=== PATIENT | female | born 1985 | race African-American/Black ===

== ENCOUNTER 2016-10-15 21:47 | Emergency (ER) | payer OTHER ==
[2016-10-15] MEDS ORDERED: Dexamethasone 4 mg/ml Vial ONE (22:05)
[2016-10-15] MEDS ORDERED: Sulfameth/Trimethoprim DS 800-160mg TAB ONE (22:05)
--- NOTE | 2016-10-15 22:55 | PICIS ---
[facility] EMERGENCY RECORD TRIAGE (21:53 RAWI) PATIENT: NAME: Coby Pack, AGE: 31, GENDER: female, : Sat1985, TIME OF GREET: SatOct 15, 2016 21:48, PREFERRED LANGUAGE: Wolof, ETHNICITY: Not or , ECODE BILLING MAP: [facility], SSN: [id number], Zip Code: [address], PHONE: , , , PERSON ID: [id number], PAYMENT: Unknown, PCP: "DOES NOT REMEMBER". (21:53 RAWI) KG WEIGHT: 117.9 (est.). (21:55 RAWI) COMPLAINT: NECK SWELLING. (21:55 RAWI) ADMISSION: URGENCY: 3 Urgent, ADMISSION SOURCE: Home, TRANSPORT: Walk-in, BED: TRIAGE. (21:53 RAWI) IMMUNIZATIONS: Flu vaccine not up to date, Tetanus immunization up to date, Pneumococcal vaccine not up to date. (22:01 RAWI) SIRS SCORING: Heart Rate 55-109 (0), Temp range 96.8-101.1 (0), respiratory rate 12-24 (0), Latest WBC 3-14.9 (0), Mental Status altered: no (0). (22:01 RAWI) TRIAGE SCREENING: Patient denies suicidal ideation, Patient denies presence of domestic violence. (22:01 RAWI) TREATMENTS IN PROGRESS: Treatments given Prehospital: NONE. (22:01 RAWI) PROVIDERS: TRIAGE NURSE: PAOLO Glover. (21:53 RAWI) PREVIOUS VISIT ALLERGIES: raspberry. (21:53 RAWI) raspberry. (22:01 RAWI) KNOWN ALLERGIES raspberry (Unconfirmed) CURRENT MEDICATIONS (22:02 RAWI) Zantac: TABLET : Strength - 150 mg : ORAL Patient Dose: 1 tab(s) Oral As Needed. VITAL SIGNS VITAL SIGNS: BP: 114/92, Pulse: 90, Resp: 20, Temp: 98.6 (Oral), Pain: 0, O2 sat: 100 on Room Air, Time: 10/15/2016 21:53. (21:53 RAWI) BP: 111/84, Pulse: 75, Resp: 16, Pain: 0, O2 sat: 100 on RA, Time: 10/15/2016 22:21. (22:21 RAWI) NURSING ASSESSMENT: ENT (21:55 RAWI) CONSTITUTIONAL: Patient arrives ambulatory, Gait steady, History obtained from patient, Patient appears comfortable, Patient cooperative, Patient alert, Oriented to person, place and time, Skin warm, Skin dry, Skin normal in color, Mucous membranes pink, Mucous membranes moist, Patient is well-groomed. ENT: Ear assessment findings include ear normal to inspection, Nasal assessment findings include nose normal to inspection, Sinuses normal, Nasal mucosa normal, Mouth and throat assessment findings include mouth, NECK SWOLLEN ON L SIDE, Able &a-1R&a+25V*p+0X*[id number]*c202B*c15G*c2P*p-0X&a-25V&a+1R Name: Coby Pack : 1985 F31 MedRec: [id number] AcctNum: [id number] Prepared: SatOct 15, 2016 22:32 by Interface Page 1 of 5 pMD [facility] EMERGENCY RECORD to swallow, Speech normal, Notes: PT NOTES "PUFFINIESS ON L SIDE. STARTED 3 DAYS AGO" PT NOTES SNEEZING AND DRYNESS IN NOSE. RESPIRATORY/CHEST: Breath sounds clear, Respiratory assessment findings include respiratory effort easy, Respirations regular, Conversing normally, Neck and chest exam findings include trachea midline, Chest expansion equal, Chest movement symmetrical, no signs of distress. SAFETY: Side rails up, Cart/Stretcher in lowest position, Call light within reach, Hospital ID band on. NURSING PROCEDURE: DISCHARGE NOTE (22:21 RAWI) DISCHARGE: Patient discharged to home, ambulating without assistance, driving self, unaccompanied, Summary of Care printed/ provided, Patient requested and was provided an electronic copy of Discharge Instructions, Discharge instructions given to patient, Simple or moderate discharge teaching performed, Prescriptions given and instructions on side effects given, Patient treated and evaluated by physician. BELONGINGS: Belongings remain with patient, Valuables remain with patient. VITAL SIGNS: BP: 111, / 84, Pulse: 75, Resp: 16, Pain: 0, O2 sat: 100, on: RA. MEDICATION ADMINISTRATION SUMMARY Drug Name: Rajesh POLLOCK, Dose Ordered: 2 tab(s), Route: Oral, Status: Given, Time: 22:09 10/15/2016, Drug Name: dexamethasone, Dose Ordered: 8 mg, Route: Oral, Status: Given, Time: 22:08 10/15/2016, Detailed record available in Medication Service section. MEDICATION SERVICE dexamethasone: Order: dexamethasone - Dose: 8 mg : Oral Schedule: Now Ordered by: Nadeem Grider DO Entered by: Nadeem Grider DO SatOct 15, 2016 21:59 , Acknowledged by: PAOLO Glover SatOct 15, 2016 22:02 Documented as given by: PAOLO Glover SatOct 15, 2016 22:08 Patient, Medication, Dose, Route and Time verified prior to administration. Amount given: 8 MG, Site: Medication administered P.O., Correct patient, time, route, dose and medication confirmed prior to administration, Patient advised of actions and side-effects prior to administration, Allergies confirmed and medications reviewed prior to administration, Patient in position of comfort, Side rails up, Cart in lowest position, Call light in reach, MIXED WITH 10 ML OROSWEET. Septra DS: Order: Septra DS (sulfamethoxazole/trimethoprim) - Dose: 2 tab(s) : Oral Schedule: Now &a-1R&a+25V*p+0X*j8354Y*c202B*c15G*c2P*p-0X&a-25V&a+1R Name: Coby Pack : 1985 F31 MedRec: [id number] AcctNum: [id number] Prepared: SatOct 15, 2016 22:32 by Interface Page 2 of 5 pMD [facility] EMERGENCY RECORD Ordered by: Nadeem Grider DO Entered by: Nadeem Grider DO SatOct 15, 2016 21:59 , Acknowledged by: PAOLO Glover SatOct 15, 2016 22:02 Documented as given by: PAOLO Glover SatOct 15, 2016 22:09 Patient, Medication, Dose, Route and Time verified prior to administration. Amount given: 2 TAB, Site: Medication administered P.O., Correct patient, time, route, dose and medication confirmed prior to administration, Patient advised of actions and side-effects prior to administration, Allergies confirmed and medications reviewed prior to administration, Patient in position of comfort, Side rails up, Cart in lowest position, Call light in reach. HPI URI (22:06 JPIP) CHIEF COMPLAINT: Patient presents for evaluation of nasal congestion, Patient presents for evaluation of feels like her neck is swelling and pushing on her throat. primarily on the left side. HISTORIAN: History provided by patient. LOCATION: Symptoms are localized, most severe to left side of her throat. SEVERITY: Current severity of pain rated as 0/10. TIME COURSE: Sudden onset of symptoms, 3, days ago, There has been no change in the patient's symptoms over time, are constant. ASSOCIATED WITH: No associated chills, No associated fever, No associated neck pain, No associated shortness of breath, nasal congestion and drainage. EXACERBATED BY: Patient's condition exacerbated by nothing. RELIEVED BY: Patient's condition relieved by nothing. ROS (22:08 JPIP) CONSTITUTIONAL: Historian denies chills, denies fever. EYES: Historian denies eye redness. ENT: Historian denies dysphagia, reports rhinorrhea, reports sinus pain, denies sore throat. RESPIRATORY: Historian denies cough, denies shortness of breath. GI: Historian denies nausea, denies vomiting. MUSCULOSKELETAL: Historian denies neck pain. SKIN: Historian denies rash, denies skin changes, denies skin lesions. NOTES: All systems reviewed, negative except as described above. PAST MEDICAL HISTORY MEDICAL HISTORY: No past medical history.VERIFIED 10/15/2016. (22:01 RAWI) FEMALE SURGICAL HISTORY: LOOP. VERIFIED 10/15/2016. (22:01 RAWI) PSYCHIATRIC HISTORY: No previous psychiatric history. VERIFIED 10/15/2016. (22:01 RAWI) SOCIAL HISTORY: Patient drinks socially, rarely, Patient denies drug use, Patient has no smoking history. &a-1R&a+25V*p+0X*q0704X*c202B*c15G*c2P*p-0X&a-25V&a+1R Name: Melissa Packndra : 1985 F31 MedRec: [id number] AcctNum: [id number] Prepared: SatOct 15, 2016 22:32 by Interface Page 3 of 5 pMD [facility] EMERGENCY RECORD VERIFIED 10/15/2016. (22:01 RAWI) NOTES: Nursing records reviewed, Medication list reviewed. (22:10 JPIP) PHYSICAL EXAM (22:09 JPIP) CONSTITUTIONAL: Vital signs reviewed, Patient afebrile, Pulse normal, Blood pressure, hypertensive, Respiratory rate normal, Patient appears, uncomfortable, Patient alert and oriented to person, place and time. HEAD: Head exam included findings of head atraumatic, normocephalic. EYES: Eye exam included findings of eyelids normal to inspection, Conjunctiva normal, Sclera normal, no periorbital ecchymosis, no periorbital edema, no periorbital erythema. ENT: Ear exam normal, external ear normal, tympanic membranes normal, no foreign body, no drainage, no bleeding, Pharynx exam normal, not injected, no swelling, symmetrical, Uvula exam normal, midline, no edema, Mouth exam normal, mucous membranes moist, Sinus exam included findings of frontal sinuses with, tenderness on the left, Maxillary sinuses with, tenderness on the left. NECK: Neck exam included findings of normal range of motion, Trachea midline, Cervical adenopathy, isolated, swollen, left sided adenopathy. RESPIRATORY CHEST: Respiratory exam included findings of no respiratory distress, Breath sounds clear, No wheezing, No rales, No rhonchi, Breath sounds not absent, Breath sounds not diminished. CARDIOVASCULAR: Cardiovascular exam included findings of heart rate regular rate and rhythm, Heart sounds normal. UPPER EXTREMITY: Upper extremity exam included findings of inspection normal, Range of motion normal. NEURO: [place] coma scale 15, Neuro exam findings include patient oriented to person, place and time, no focal motor deficits. SKIN: Skin exam included findings of skin warm, dry, and normal in color. LYMPHATIC: Lymphatic exam included findings of cervical adenopathy. PSYCHIATRIC: Psychiatric exam included findings of patient oriented to person place and time, Normal affect. EVENTS TRANSFER: Triage to Emergency Triage. (21:53 RAWI) Emergency Triage to Emergency Room -01. (21:54 RAWI) Removed from Emergency Emergency Room -01. (22:22 RAWI) O2SAT INTERPRETATION (22:10 JPIP) O2SAT: Single pulse oximetry, Oxygen saturation 100%, on room air, Oxygen saturation interpretation: Normal, No intervention required. &a-1R&a+25V*p+0X*w0074Y*c202B*c15G*c2P*p-0X&a-25V&a+1R Name: Coby Pack : 1985 F31 MedRec: [id number] AcctNum: [id number] Prepared: SatOct 15, 2016 22:32 by Interface Page 4 of 5 pMD [facility] EMERGENCY RECORD PROBLEM LIST No recorded problems DIAGNOSIS (22:01 JPIP) FINAL: PRIMARY: reactive adenopathy, ADDITIONAL: ACUTE SINUSITIS UNSPECIFIED. DISPOSITION PATIENT: Disposition Type: Discharge, Disposition: *Discharge Home, Condition: Good. (22:01 JPIP) Patient left the department. (22:22 RAWI) INSTRUCTION (22:00 JPIP) DISCHARGE: ADENITIS CERVICAL ANTIBIOTIC TREATMENT, SINUSITIS, ABX TX. SPECIAL: Finish all your antibiotics Follow up with Primary Care Physician within 72 hours Return to the Emergency Department for increased symptoms problems or concerns Take acetaminophen or ibuprofen for pain. PRESCRIPTION (22:00 JPIP) Septra DS: TABLET : 800 mg-160 mg : ORAL : Quantity: 1 Unit: tab(s) Route: ORAL Schedule: 2 times a day Dispense: 20 May substitute. Refills: No Refills . NOTES: No refills. IMAGING (22:25 RAWI) *DISCHARGE INSTRUCTIONS RECEIPT: Image captured from scanner. *SUPPLY CHARGE SHEET: Image captured from scanner. Jc: BREANNA=DO Grider Joseph RAWI=PAOLO Schmitz Rachel &a-1R&a+25V*p+0X*u1832W*c202B*c15G*c2P*p-0X&a-25V&a+1R Name: Coby Pack : 1985 1 MedRec: [id number] AcctNum: [id number] Prepared: SatOct 15, 2016 22:32 by Interface Page 5 of 5 pMD MTDD
== END 2016-10-15 22:23 | disposition home or self-care (01) ==
LOC: BURERS 21:47
DX: J01.90 Acute sinusitis, unspecified (principal); R59.9 Enlarged lymph nodes, unspecified; Z79.899 Other long term (current) drug therapy
CPT/HCPCS: 99283; J1100

== ENCOUNTER 2016-11-23 05:45 | Emergency (ER) | payer OTHER ==
[2016-11-23] MEDS ORDERED: methylPREDNISolone Sod Succ/PF 125 MG/2 ML VIAL ONE (06:36)
== END 2016-11-23 06:42 | disposition home or self-care (01) ==
LOC: BURERS 05:45
DX: J30.9 Allergic rhinitis, unspecified (principal)
CPT/HCPCS: 36416; 87430; 96372; J2930